=== PATIENT | female | born 1945 | race Caucasian/White ===

== ENCOUNTER 2018-07-17 14:57 | Observation (INO) ==
[2018-07-17] MEDS ORDERED: Morphine Inj 4 MG/ML Vial IV.PUSH ONE ×3 (15:13→17:51)
[2018-07-17 15:33] LABS: Baso # (Auto) 0.1 th/mm3 (0.0-0.2); Baso % (Auto) 0.9 % (0.0-2.0); Eos # (Auto) 0.7 th/mm3 (0.0-0.4); Eos % (Auto) 4.5 % (0.0-4.0); Hematocrit 44.3 % (35.0-46.0); Hemoglobin 14.3 gm/dL (11.6-15.3); Lymph # (Auto) 3.5 th/mm3 (1.0-4.8); Lymph % (Auto) 24.1 % (9.0-44.0); Mean Corpuscular HGB Conc 32.3 % (32.0-36.0); Mean Corpuscular Hemoglobin 28.9 pg (27.0-34.0); Mean Corpuscular Volume 89.6 fL (80.0-100.0); Mean Platelet Volume 8.9 fL (7.0-11.0); Mono # (Auto) 0.7 th/mm3 (0.0-0.9); Mono % (Auto) 4.9 % (0.0-8.0); Neut # (Auto) 9.6 th/mm3 (1.8-7.7); Neut % (Auto) 65.6 % (16.0-70.0); Platelet Count 349 th/mm3 (150-450); Red Blood Count 4.94 mil/mm3 (4.00-5.30); Red Cell Distribution Width 13.5 % (11.6-17.2); White Blood Count 14.6 th/mm3 (4.0-11.0)
[2018-07-17 15:47] LABS: Anion Gap 8 meq/L (5-15); Aspartate Aminotransferase 23 U/L (15-37); Blood Urea Nitrogen 17 mg/dL (7-18); Calcium 9.6 mg/dL (8.5-10.1); Carbon Dioxide 25.8 meq/L (21.0-32.0); Chloride 108 meq/L (98-107); Glomerular Filtration Rate 50 mL/min (>89); Glucose,Random 107 mg/dL (74-106); Lipase 40 U/L (73-393); Potassium 4.9 meq/L (3.5-5.1); Sodium 142 meq/L (136-145)
[2018-07-17 15:50] LABS: Alanine Aminotransferase 21 U/L (10-53); Alkaline Phosphatase 100 U/L (45-117); Total Protein 8.4 g/dL (6.4-8.2)
--- NOTE | 2018-07-17 15:59 | ED ---
HPI General Chief Complaint: Abdominal Pain Stated Complaint: Poss Kidney Stones Time Seen by Provider: 07/17/18 15:03 Source: patient and RN notes reviewed Mode of arrival: other (med one) Limitations: altered mental status History of Present Illness HPI narrative: 73 yo female here for evaluation of abdominal pain. Comes here via [facility]. Patient has been having abdominal pain since today. Patient takes tramadol chronically for pain but this does not seem to be working. She states that the pain is bilaterally on the abdomen. She denies any bowel movement or urinary issues. History is somewhat difficult to obtain from the patient has she is not really a great historian she does appear to be somewhat altered. She only answers by yes or no questions and points to areas of pain. Unclear as to what is her baseline. She does appear to be somewhat altered on exam. She lives in an [facility]. Denies any trauma. She does have a history of chronic kidney stones and had a CAT scan done at the beginning of June that showed inflammation of the rectum as well as kidney stones. She cannot really tell me this is the same. Pain appears to be severe as patient moans and groans every time I evaluate her. Related Data Home Medications Medication Instructions Recorded Confirmed alendronate 70 mg PO QWEEK 07/17/18 07/17/18 amlodipine 10 mg PO DAILY 07/17/18 07/17/18 atorvastatin 20 mg PO DAILY 07/17/18 07/17/18 insulin aspart U-100 [Novolog 1 sliding scale dose SUBCUT UD 07/17/18 07/17/18 PenFill U-100 Insulin] insulin detemir U-100 [Levemir 10 unit SUBCUT QPM 07/17/18 07/17/18 U-100 Insulin] lisinopril 5 mg PO DAILY 07/17/18 07/17/18 metformin 500 mg PO BID 07/17/18 07/17/18 tramadol 50 mg PO QID 07/17/18 07/17/18 Allergies Allergy/AdvReac Type Severity Reaction Status Date / Time aspirin AdvReac Severe "UPSET Verified 07/17/18 19:16 STOMACH" Review of Systems ROS: all other systems reviewed are negative [facility] Medical History Medical History Anxiety (Acute) Aphasia (Acute) CVA (cerebral vascular accident) (Acute) Diabetes (Acute) Emphysema of lung (Acute) GERD (gastroesophageal reflux disease) (Acute) Hyperlipemia (Acute) Hypertension (Acute) Pseudobulbar affect (Acute) Social History Social History Substance History: No History of Abuse Smoking Status: Former smoker How Often Do You Have a Drink Containing Alcohol: 4 or more times a week Recent Travel in [facility] [place] within the Last 8 Weeks: No Recent Out of Country Travel within the Last 8 Weeks: No Immunization History Tetanus Immunization: Unsure Exam Narrative Exam Narrative: GENERAL: Well groomed SKIN: Focused skin assessment warm/dry. HEAD: Atraumatic. Normocephalic. EYES: Pupils equal and round. No scleral icterus. No injection or drainage. ENT: No nasal bleeding or discharge. Mucous membranes pink and moist. Tongue is midline. No uvula deviation. NECK: Trachea midline. No JVD. CARDIOVASCULAR: Regular rate and rhythm. No murmur appreciated. RESPIRATORY: No accessory muscle use. Clear to auscultation. Breath sounds equal bilaterally. GASTROINTESTINAL: Abdomen soft, tender to touch in the lower abdomen, nondistended. Hepatic and splenic margins not palpable. MUSCULOSKELETAL: No obvious deformities. No clubbing. No cyanosis. No edema. NEUROLOGICAL: Awake and alert. No obvious cranial nerve deficits. Motor grossly within normal limits. Normal speech. PSYCHIATRIC: Appropriate mood and affect; insight and judgment normal. Course Initial Documented Vital Signs Temperature 98.0 F 07/17/18 15:07 Pulse Rate 68 07/17/18 15:07 Respiratory Rate 12 07/17/18 15:07 Blood Pressure 144/92 H 07/17/18 15:07 Pulse Oximetry 95 07/17/18 15:07 Last Documented Vital Signs Temperature 98.0 F 07/17/18 15:07 Pulse Rate 58 L 07/17/18 16:28 Respiratory Rate 24 07/17/18 16:28 Blood Pressure 145/65 H 07/17/18 16:28 Pulse Oximetry 97 07/17/18 16:28 Medical Decision Making MDM Narrative Medical decision making narrative: 73-year-old female that presents to the ED for evaluation of possible kidney stone versus acute abdomen. Patient was properly examined and was found to have signs and symptoms of unclear etiology. She is very tender on exam. Labs and imaging ordered. Labs and imaging showed what appears to be UTI. Otherwise unremarkable exam. Some constipation on CT. I was told by the nurse when they move the patient the patient does appear to have a decubitus stage 2 ulcer on her lumbar area as well as what appears to be pinkish discoloration of the buttocks from possible staged 1 or early ulcer. Unclear as to how long they have been there as there is no documented evidence that has been seen before. Patient does appear to have some altered mental status. Sister is at bedside and she does state that she seems to be going in and out of alteration. Patient had to go to CAT scan twice because the first time she apparently started to refuse and become agitated. Patient at baseline does not talk because of CVA. She does appear to be in and out of possible delirium versus alteration. The recommend admission for further evaluation and IV antibiotics. Patient agrees. Dr. Pierce agrees to admission. Medical Screen Exam Complete: Yes Emergency Medical Condition: Yes Differential Diagnosis Differential Diagnosis: Acute abdomen versus kidney stone versus diverticulitis versus sepsis versus UTI Medical Records Medical records reviewed: Yes I reviewed the patient's medical records. Lab Data Lab results reviewed: Yes I reviewed the patient's lab results. Lab results narrative: UA shows UTI Result diagrams: 07/17/18 15:23 07/17/18 15:23 Lab Results 07/17/18 07/17/18 07/17/18 Range/Units 15:23 15:23 15:23 WBC 14.6 H (4.0-11.0) th/mm3 RBC 4.94 (4.00-5.30) mil/mm3 Hgb 14.3 (11.6-15.3) gm/dL Hct 44.3 (35.0-46.0) % MCV 89.6 (80.0-100.0) fL MCH 28.9 (27.0-34.0) pg MCHC 32.3 (32.0-36.0) % RDW 13.5 (11.6-17.2) % Plt Count 349 (150-450) th/mm3 MPV 8.9 (7.0-11.0) fL Neut % (Auto) 65.6 (16.0-70.0) % Lymph % (Auto) 24.1 (9.0-44.0) % [place] % (Auto) 4.9 (0.0-8.0) % Eos % (Auto) 4.5 H (0.0-4.0) % Baso % (Auto) 0.9 (0.0-2.0) % Neut # (Auto) 9.6 H (1.8-7.7) th/mm3 Lymph # (Auto) 3.5 (1.0-4.8) th/mm3 [place] # (Auto) 0.7 (0.0-0.9) th/mm3 Eos # (Auto) 0.7 H (0.0-0.4) th/mm3 Baso # (Auto) 0.1 (0.0-0.2) th/mm3 WBC Differential . Differential Comment Auto diff final Sodium 142 (136-145) meq/L Potassium 4.9 (3.5-5.1) meq/L Chloride 108 H (98-107) meq/L Carbon Dioxide 25.8 (21.0-32.0) meq/L Anion Gap 8 (5-15) meq/L BUN 17 (7-18) mg/dL Creatinine 1.08 H (0.50-1.00) mg/dL Estimated GFR 50 L (>89) mL/min Random Glucose 107 H (74-106) mg/dL Lactic Acid 1.1 (0.4-2.0) mmol/L Calcium 9.6 (8.5-10.1) mg/dL Total Bilirubin 0.5 (0.2-1.0) mg/dL AST 23 (15-37) U/L ALT 21 (10-53) U/L Alkaline Phosphatase 100 (45-117) U/L Total Protein 8.4 H (6.4-8.2) g/dL Albumin 4.0 (3.4-5.0) g/dL Lipase 40 L (73-393) U/L Urine Color (Yellw/Straw) Urine Clarity (Clear) Urine pH (5.0-8.5) Ur Specific [place] (1.002-1.035) Urine Protein (Neg-Trace) mg/dL Urine Glucose (UA) (Negative) mg/dL Urine Ketones (Negative) mg/dL Urine Occult Blood (Negative) Urine Nitrate (Negative) Urine Bilirubin (Negative) Urine Urobilinogen (Less than 2) mg/dL Ur Leukocyte Esterase (Negative) Urine RBC (0-3) /hpf Urine WBC (0-5) /hpf Urine WBC Clumps (None) Urine Bacteria (None) /hpf Hyaline Casts (0-3) /lpf Urine Mucus (Occasional) /lpf Micro UA Comment Ur Microscopic Review Urine Culture Comments 07/17/18 Range/Units 15:26 WBC (4.0-11.0) th/mm3 RBC (4.00-5.30) mil/mm3 Hgb (11.6-15.3) gm/dL Hct (35.0-46.0) % MCV (80.0-100.0) fL MCH (27.0-34.0) pg MCHC (32.0-36.0) % RDW (11.6-17.2) % Plt Count (150-450) th/mm3 MPV (7.0-11.0) fL Neut % (Auto) (16.0-70.0) % Lymph % (Auto) (9.0-44.0) % [place] % (Auto) (0.0-8.0) % Eos % (Auto) (0.0-4.0) % Baso % (Auto) (0.0-2.0) % Neut # (Auto) (1.8-7.7) th/mm3 Lymph # (Auto) (1.0-4.8) th/mm3 [place] # (Auto) (0.0-0.9) th/mm3 Eos # (Auto) (0.0-0.4) th/mm3 Baso # (Auto) (0.0-0.2) th/mm3 WBC Differential Differential Comment Sodium (136-145) meq/L Potassium (3.5-5.1) meq/L Chloride (98-107) meq/L Carbon Dioxide (21.0-32.0) meq/L Anion Gap (5-15) meq/L BUN (7-18) mg/dL Creatinine (0.50-1.00) mg/dL Estimated GFR (>89) mL/min Random Glucose (74-106) mg/dL Lactic Acid (0.4-2.0) mmol/L Calcium (8.5-10.1) mg/dL Total Bilirubin (0.2-1.0) mg/dL AST (15-37) U/L ALT (10-53) U/L Alkaline Phosphatase (45-117) U/L Total Protein (6.4-8.2) g/dL Albumin (3.4-5.0) g/dL Lipase (73-393) U/L Urine Color Yellow (Yellw/Straw) Urine Clarity Hazy H (Clear) Urine pH 5.0 (5.0-8.5) Ur Specific [place] 1.023 (1.002-1.035) Urine Protein Negative (Neg-Trace) mg/dL Urine Glucose (UA) Negative (Negative) mg/dL Urine Ketones Negative (Negative) mg/dL Urine Occult Blood Moderate H (Negative) Urine Nitrate Negative (Negative) Urine Bilirubin Negative (Negative) Urine Urobilinogen Less than 2 (Less than 2) mg/dL Ur Leukocyte Esterase Moderate H (Negative) Urine RBC 18 H (0-3) /hpf Urine WBC 38 H (0-5) /hpf Urine WBC Clumps Few H (None) Urine Bacteria Moderate H (None) /hpf Hyaline Casts 1 (0-3) /lpf Urine Mucus Few H (Occasional) /lpf Micro UA Comment Cath-culture ind Ur Microscopic Review Not Reportable Urine Culture Comments Cath-cult indicated Imaging Data Attestation: I personally reviewed and interpreted this imaging study as follows : Radiologist's impression: Abdomen/Pelvis CT 07/17/18 15:13 CONCLUSION: 1. There is a 5 mm nonobstructing stone in the right renal pelvis. 2. Status post cholecystectomy. 3. Moderate to large bolus of stool in the rectum. No mechanical obstruction. 4. No acute pelvic or abdominal pathology. Discharge Plan Discharge Disposition Patient Disposition: 30 Still Patient Discharge Details Diagnosis: Altered mental status, Acute UTI, Decubitus ulcer Physicians Team ED Provider: Moise Kirkland ED Midlevel Provider: Brien Murphy Primary Care Provider: UNKNOWN, Attending Provider: Maddison Pierce Rxs /Orders / Referrals /Forms Prescriptions: No Action metformin 500 mg Tablet 500 mg PO BID RF: 0 atorvastatin 20 mg Tablet 20 mg PO DAILY RF: 0 alendronate 70 mg Tablet 70 mg PO QWEEK RF: 0 tramadol 50 mg Tablet 50 mg PO QID RF: 0 amlodipine 10 mg Tablet 10 mg PO DAILY RF: 0 lisinopril 5 mg Tablet 5 mg PO DAILY RF: 0 insulin aspart U-100 [Novolog PenFill U-100 Insulin] 100 unit/mL Cartridge 1 sliding scale dose SUBCUT UD RF: 0 insulin detemir U-100 [Levemir U-100 Insulin] 100 unit/mL Solution 10 unit SUBCUT QPM RF: 0 Status ED Status: With Doctor
[2018-07-17 16:02] LABS: Bacteria,Urine Moderate /hpf; Bilirubin,Urine Negative (Negative); Clarity,Urine Hazy (Clear); Color,Urine Yellow (Yellw/Straw); Glucose,Urine (UA) Negative (Negative); Hyaline Casts,Urine 1 /lpf (0-3); Leukocyte Esterase,Urine Moderate (Negative); Mucus,Urine Few /lpf (Occasional); Nitrite,Urine Negative (Negative); Specific Gravity,Urine 1.023 (1.002-1.035)
--- NOTE | 2018-07-17 19:08 | CT ---
EXAM DATE: 07/17/2018 6:49 PM EDT AGE/SEX: 73 years / Female INDICATIONS: Abdominal pain. CLINICAL DATA: This is the patient's initial encounter. Patient reports that signs and symptoms have been present for 1 day and indicates a pain score of Nonresponsive. MEDICAL/SURGICAL HISTORY: Hypertension. Chronic obstructive pulmonary disease. Cerebrovascula r disease. Aphasia None. ORAL CONTRAST: No oral contrast ingested. RADIATION DOSE: 13.68 CTDI (mGy) COMPARISON: No prior exams available for comparison. TECHNIQUE: Multiple contiguous axial images were obtained through the abdomen and pelvis following b olus infusion of 97 ml Omnipaque 350 (iohexol) nonionic water-soluble contrast as a single exam dos e. No oral contrast ingested. Using automated exposure control and adjustment of the mA and/or kV ac cording to patient size, radiation dose was kept as low as reasonably achievable to obtain optimal di agnostic quality images. DICOM format image data is available electronically for review and comparis on. FINDINGS: Lower Lungs: The visualized lower lungs are clear. Liver: The liver has a homogeneous density without space-occupying lesion. There is no dilation of th e biliary tree. Gallbladder removed. Spleen: Homogeneous density without enlargement. Pancreas: Unremarkable without mass or calcification. Kidneys: There is a 5 mm stone in the right renal pelvis. No significant hydronephrosis is demonstra philip. Both kidneys are functioning. The left kidney is unremarkable. The ureters are nondilated. Adrenal Glands: Unremarkable. Aorta: Atherosclerotic changes. No aneurysmal dilatation. Bowel/Mesentery: The bowel loops are grossly unremarkable. The cecum and sigmoid colon have a normal configuration. No inflammatory changes are seen. There is stool throughout the colon. There is a mod erate to large bolus of stool in the rectum. No free fluid is seen. No free air is demonstrated. Abdominal Wall: Intact. Retroperitoneum: No evidence of adenopathy in the retrocrural, para-aortic, or deep pelvic regions. Bladder: Contours are smooth. Reproductive Organs: No abnormal masses or calcifications seen. Inguinal: The inguinal region is unremarkable without evidence of adenopathy. Bony Structures: Primary bony degenerative changes. CONCLUSION: 1. There is a 5 mm nonobstructing stone in the right renal pelvis. 2. Status post cholecystectomy. 3. Moderate to large bolus of stool in the rectum. No mechanical obstruction. 4. No acute pelvic or abdominal pathology. Electronically signed by: Ruben Moreno MD 07/17/2018 7:07 PM EDT
[2018-07-17] MEDS ORDERED: Bisacodyl 10 MG Supp RECTAL PRN (19:41)
[2018-07-17] MEDS ORDERED: Acetaminophen 325 MG Tablet PO PRN (19:41)
[2018-07-17] MEDS ORDERED: Dextrose 50% in Water 50 ML Vial IV.PUSH PRN (19:41)
--- NOTE | 2018-07-17 19:44 | P.HPIM ---
History of Present Illness Primary Care Physician: UNKNOWN History of Present Illness: This is a 73-year-old female with a PMH of Anxiety, CVA w/ Residual Aphasia, HTN , Hyperlipidemia and DM who was brought to the ER by transport for AMS and c/o abdominal pain. Pt poor historian due to h/o CVA, mostly non-verbal at baseline , but able to point to area of pain on abdomen. No reported fever/chills, nausea, vomiting or diarrhea. On arrival, BP 144/92, HR 68, O2 sat 95% on RA, Afebrile. WBC 14.6. Creatinine 1.08. Lactic Acid normal. UA positive for UTI. CT Abdomen/Pelvis 5 mm nonobstructing stone right renal pelvis, large bolus of stool in the rectum no obstruction. S/p IVF, Rocephin and multiple doses of Morphine w/ minimal relief of pain complaints. - Diagnosis (1) Encephalopathy (2) UTI (urinary tract infection) (3) Intractable pain (4) Decubitus ulcer (5) DM (diabetes mellitus) Review of Systems PAST FAMILY HISTORY: Unknown unobtainable due to mental condition PMFSH - History History Provided By: Patient - Medical History Medical History: Medical History (Last Reviewed 07/17/18 @ 17:14 by JANETH Schafer) Anxiety Aphasia CVA (cerebral vascular accident) Diabetes Emphysema of lung GERD (gastroesophageal reflux disease) Hyperlipemia Hypertension Pseudobulbar affect - Tobacco History Tobacco Use In Past 30 Days: No Smoking Status: Former smoker - Alcohol History How Often Do You Have a Drink Containing Alcohol: 4 or more times a week - Substance Use History Substance History: No History of Abuse - Travel History Recent Travel in the [place] Within the Last 8 Weeks: No Recent Travel Out of the Country Within the Last 8 Weeks: No - Immunization History Tetanus Immunization: Unsure Medications and Allergies Active Medications: Active Medications Sodium Chloride (Ns Flush) 2 ml IV.FLUSH PRN PRN PRN Reason: FLUSH AFTER USING IV ACCESS Last Admin: 07/17/18 15:30 Dose: 2 ml Allergies Allergy/AdvReac Type Severity Reaction Status Date / Time aspirin AdvReac Severe "UPSET Verified 07/17/18 19:16 STOMACH" Home Medications Medication Instructions Recorded Confirmed Type alendronate 70 mg PO QWEEK 07/17/18 07/17/18 History amlodipine 10 mg PO DAILY 07/17/18 07/17/18 History atorvastatin 20 mg PO DAILY 07/17/18 07/17/18 History insulin aspart U-100 [Novolog 1 sliding scale dose SUBCUT UD 07/17/18 07/17/18 History PenFill U-100 Insulin] insulin detemir U-100 [Levemir 10 unit SUBCUT QPM 07/17/18 07/17/18 History U-100 Insulin] lisinopril 5 mg PO DAILY 07/17/18 07/17/18 History metformin 500 mg PO BID 07/17/18 07/17/18 History tramadol 50 mg PO QID 07/17/18 07/17/18 History Exam Vital signs: Vital Signs 07/17/18 15:07 07/17/18 16:28 Temperature 98.0 F Pulse Rate 68 58 L Respiratory Rate 12 24 Blood Pressure 144/92 H 145/65 H Pulse Oximetry 95 97 Intake & Output 07/17/18 07/17/18 07/18/18 06:59 18:59 06:59 Intake Total 100 / 100 Balance 100 / 100 Weight 86.183 kg Intake: IV 100 / 100 Rocephin Inj 1,000 MG In NS Inj 100 / 100 100 ML @ 200 mls/hr IV.SIG ONCE ONE Rx#:[id number] Narrative: PE: GENERAL: Elderly female in no acute distress. SKIN: Focused skin assessment warm and dry. HEENT: PERRLA, EOMI. No scleral icterus or conjunctival pallor. No lid lag or facial droop. CARDIOVASCULAR: Regular rate and rhythm. No obvious murmurs to auscultation. No chest tenderness to palpation. RESPIRATORY: No obvious rhonchi or wheezing. Clear to auscultation. Breath sounds equal bilaterally. GASTROINTESTINAL: Abdomen soft, mild generalized tenderness to palpation, nondistended. BS normal. MUSCULOSKELETAL: Extremities without clubbing, cyanosis, or edema. No obvious deformities. NEUROLOGICAL: Awake, alert. No focal neurologic deficits. Moving both upper and lower extremities spontaneously. PSYCHIATRIC: Appropriate mood and affect. Insight and judgment normal. Results - Labs CBC & Chem 7: 07/17/18 15:23 07/17/18 15:23 Labs: Short CBC 07/17/18 Range/Units 15:23 WBC 14.6 H (4.0-11.0) th/mm3 Hgb 14.3 (11.6-15.3) gm/dL Hct 44.3 (35.0-46.0) % Plt Count 349 (150-450) th/mm3 BMP 07/17/18 15:23 Sodium 142 Potassium 4.9 Chloride 108 H Carbon Dioxide 25.8 BUN 17 Creatinine 1.08 H Calcium 9.6 Liver Function 07/17/18 Range/Units 15:23 Total Bilirubin 0.5 (0.2-1.0) mg/dL AST 23 (15-37) U/L ALT 21 (10-53) U/L Alkaline Phosphatase 100 (45-117) U/L Albumin 4.0 (3.4-5.0) g/dL Urine 07/17/18 Range/Units 15:26 Urine Color Yellow (Yellw/Straw) Urine Clarity Hazy H (Clear) Urine pH 5.0 (5.0-8.5) Ur Specific [place] 1.023 (1.002-1.035) Urine Protein Negative (Neg-Trace) mg/dL Urine Glucose (UA) Negative (Negative) mg/dL - Imaging Impressions Abdomen/Pelvis CT 07/17/18 15:13 CONCLUSION: 1. There is a 5 mm nonobstructing stone in the right renal pelvis. 2. Status post cholecystectomy. 3. Moderate to large bolus of stool in the rectum. No mechanical obstruction. 4. No acute pelvic or abdominal pathology. Caprini VTE Risk Assessment Caprini VTE Risk Assessment: No/Low Risk (score <= 1) Caprini Risk Assessment Model: Point Value = 1 Point Value = 2 Point Value = 3 Point Value = 5 Age 41-60 Minor surgery BMI > 25 kg/m2 Swollen legs Varicose veins or History of unexplained or recurrent spontaneous Oral contraceptives or hormone replacement Sepsis (< 1 month) Serious lung disease, including pneumonia (< 1 month) Abnormal pulmonary function Acute myocardial infarction Congestive heart failure (< 1 month) History of inflammatory bowel disease Medical patient at bed rest Age 61-74 Arthroscopic surgery Major open surgery (> 45 min) Laparoscopic surgery (> 45 min) Malignancy Confined to bed (> 72 hours) Immobilizing plaster cast Central venous access Age >= 75 History of VTE Family history of VTE Factor V Leiden Prothrombin [id number] Lupus anticoagulant Anticardiolipin antibodies Elevated serum homocysteine Heparin-induced thrombocytopenia Other congenital or acquired thrombophilia Stroke (< 1 month) Elective arthroplasty Hip, pelvis, or leg fracture Acute spinal cord injury (< 1 month) Prophylaxis Regimen: Total Risk Factor Score Risk Level Prophylaxis Regimen 0-1 Low Early ambulation 2 Moderate Order ONE of the following: *Sequential Compression Device (SCD) *Heparin 5000 units SQ BID 3-4 Higher Order ONE of the following medications: *Heparin 5000 units SQ TID *Enoxaparin/Lovenox 40 mg SQ daily (WT < 150 kg, CrCl > 30 mL/min) *Enoxaparin/Lovenox 30 mg SQ daily (WT < 150 kg, CrCl > 10-29 mL/min) *Enoxaparin/Lovenox 30 mg SQ BID (WT < 150 kg, CrCl > 30 mL/min) AND/OR *Sequential Compression Device (SCD) 5 or more Highest Order ONE of the following medications: *Heparin 5000 units SQ TID (Preferred with Epidurals) *Enoxaparin/Lovenox 40 mg SQ daily (WT < 150 kg, CrCl > 30 mL/min) *Enoxaparin/Lovenox 30 mg SQ daily (WT < 150 kg, CrCl > 10-29 mL/min) *Enoxaparin/Lovenox 30 mg SQ BID (WT < 150 kg, CrCl > 30 mL/min) AND *Sequential Compression Device (SCD) Assessment and Plan - Assessment (1) Encephalopathy Code(s): G93.40 - Encephalopathy, unspecified Status: Acute (2) UTI (urinary tract infection) Code(s): N39.0 - Urinary tract infection, site not specified Status: Acute (3) Intractable pain Code(s): R52 - Pain, unspecified Status: Acute (4) Decubitus ulcer Code(s): L89.90 - Pressure ulcer of unspecified site, unspecified stage Status : Acute (5) DM (diabetes mellitus) Code(s): E11.9 - Type 2 diabetes mellitus without complications Status: Acute - Plan A/P: 1. Encephalopathy: Likely secondary to acute UTI, Neuro Checks. 2. UTI: U/a w/ UTI, s/p Rocephin in ER, will continue w/ IV Abx, follow up cultures, IVF for hydration, monitor I/O. 3. Intractable Pain: CT Abd/Pelvis w/ nonobstructing 5mm stone right renal pelvis, moderate to large stool in rectum w/ no mechanical obstruction, images reviewed. Lactic Acid normal. Continue analgesics/antiemetics as needed. Lactulose/Senna 4. Decubitus Ulcer: Sacral, present on admission. Will consult Wound Management for further eval/intervention. 5. DM: Sliding scale w/ Accu-Cheks. 6. DVT Prophylaxis: SCD/Teds 7. Social work for d/c planning as needed. 8. Case discussed w/ ER physician at length, labs/records/imaging reviewed by me.
[2018-07-17] MEDS: Sod Chloride 0.9% Inj 1,000 ML IV.CONT SCH (21:58)
[2018-07-17] MEDS: Senna/Docusate Sodium 8.6/50 MG Tablet PO SCH (21:58)
[2018-07-17] MEDS: Insulin NovoLOG Aspart Correctional Sugar Inj SQ SCH (21:58)
[2018-07-18] MEDS: Morphine Sulfate Inj 2 MG/ML Vial IV.PUSH PRN ×3 (03:31→21:34)
[2018-07-18 06:02] LABS: Baso % (Auto) 0.2 % (0.0-2.0); Eos # (Auto) 0.7 th/mm3 (0.0-0.4); Eos % (Auto) 5.2 % (0.0-4.0); Hemoglobin 15.5 gm/dL (11.6-15.3); Lymph # (Auto) 1.2 th/mm3 (1.0-4.8); Lymph % (Auto) 8.3 % (9.0-44.0); Mean Corpuscular Hemoglobin 29.5 pg (27.0-34.0); Mean Corpuscular Volume 89.6 fL (80.0-100.0); Mean Platelet Volume 9.4 fL (7.0-11.0); Mono # (Auto) 0.6 th/mm3 (0.0-0.9); Mono % (Auto) 3.9 % (0.0-8.0); Neut # (Auto) 11.9 th/mm3 (1.8-7.7); Neut % (Auto) 82.4 % (16.0-70.0); Platelet Count 300 th/mm3 (150-450); Red Blood Count 5.25 mil/mm3 (4.00-5.30); Red Cell Distribution Width 13.6 % (11.6-17.2); White Blood Count 14.4 th/mm3 (4.0-11.0)
[2018-07-18 06:28] LABS: Alanine Aminotransferase 135 U/L (10-53); Albumin 3.7 g/dL (3.4-5.0); Alkaline Phosphatase 263 U/L (45-117); Anion Gap 10 meq/L (5-15); Aspartate Aminotransferase 213 U/L (15-37); Blood Urea Nitrogen 22 mg/dL (7-18); Calcium 8.6 mg/dL (8.5-10.1); Chloride 108 meq/L (98-107); Glomerular Filtration Rate 40 mL/min (>89); Glucose,Random 129 mg/dL (74-106); Potassium 4.7 meq/L (3.5-5.1); Sodium 142 meq/L (136-145); Total Protein 7.7 g/dL (6.4-8.2)
[2018-07-18] MEDS: Sod Chloride 0.9% Inj 1,000 ML IV.CONT SCH ×2 (08:14→18:31)
[2018-07-18] MEDS: Senna/Docusate Sodium 8.6/50 MG Tablet PO SCH ×2 (08:17→20:17)
[2018-07-18] MEDS: Insulin NovoLOG Aspart Correctional Sugar Inj SQ SCH ×4 (09:13→21:52)
--- NOTE | 2018-07-18 09:19 | P.PNIM ---
Subjective Interval history: f/u; abdominal pain in no acute distress. hard to get more information from the patient due to history of CVA/ aphasia. However she seems to have abdominal pain/tenderness in RUQ. no fever. seen with PT at the bedside. Physical Exam Vital signs: Vital Signs 07/17/18 15:07 07/17/18 16:28 07/17/18 19:41 Temperature 98.0 F Pulse Rate 68 58 L 62 Respiratory Rate 12 24 18 Blood Pressure 144/92 H 145/65 H 173/73 H Pulse Oximetry 95 97 96 07/17/18 20:31 07/17/18 22:01 07/18/18 00:00 Temperature 97.6 F 98.2 F Pulse Rate 66 72 Respiratory Rate 18 17 18 Blood Pressure 147/65 H 112/58 L Pulse Oximetry 91 L 93 L 07/18/18 04:00 Temperature 99.2 F Pulse Rate 84 Respiratory Rate 18 Blood Pressure 123/60 Pulse Oximetry 94 L Intake & Output 07/17/18 07/18/18 07/18/18 18:59 06:59 18:59 Intake Total 100 / 100 1000 / 1000 Balance 100 / 100 1000 / 1000 Weight 86.183 kg Intake: IV 100 / 100 1000 / 1000 NS Inj 1,000 ML @ 100 mls/hr IV 1000 / 1000 .CONT .Q10H FRANCIS Rx#:[id number] Rocephin Inj 1,000 MG In NS Inj 100 / 100 100 ML @ 200 mls/hr IV.SIG ONCE ONE Rx#:[id number] Other: # Urine Diapers 3 - Constitutional no acute distress - Routine Respiratory Exam Present: CTA bilaterally - Routine Cardiovascular Exam Present: RRR - Routine Abdominal Exam Present: soft, tenderness (RUQ tenderness.) - Routine Extremities Exam Comments: no pedal edema. - Routine Neurological Exam Present: alert (with aphasia.) Results - Labs CBC & Chem 7: 07/18/18 05:07 07/18/18 05:07 Laboratory Results - last 24 hr 07/17/18 07/17/18 07/17/18 15:23 15:23 15:23 WBC 14.6 H RBC 4.94 Hgb 14.3 Hct 44.3 MCV 89.6 MCH 28.9 MCHC 32.3 RDW 13.5 Plt Count 349 MPV 8.9 Neut % (Auto) 65.6 Lymph % (Auto) 24.1 [place] % (Auto) 4.9 Eos % (Auto) 4.5 H Baso % (Auto) 0.9 Neut # (Auto) 9.6 H Lymph # (Auto) 3.5 [place] # (Auto) 0.7 Eos # (Auto) 0.7 H Baso # (Auto) 0.1 WBC Differential . Differential Comment Auto diff final Sodium 142 Potassium 4.9 Chloride 108 H Carbon Dioxide 25.8 Anion Gap 8 BUN 17 Creatinine 1.08 H Estimated GFR 50 L POC Glucose Random Glucose 107 H Lactic Acid 1.1 Calcium 9.6 Total Bilirubin 0.5 AST 23 ALT 21 Alkaline Phosphatase 100 Total Protein 8.4 H Albumin 4.0 Lipase 40 L Urine Color Urine Clarity Urine pH Ur Specific [place] Urine Protein Urine Glucose (UA) Urine Ketones Urine Occult Blood Urine Nitrate Urine Bilirubin Urine Urobilinogen Ur Leukocyte Esterase Urine RBC Urine WBC Urine WBC Clumps Urine Bacteria Hyaline Casts Urine Mucus Micro UA Comment Ur Microscopic Review Urine Culture Comments 07/17/18 07/17/18 07/18/18 15:26 21:27 05:07 WBC 14.4 H RBC 5.25 Hgb 15.5 H Hct 47.0 H MCV 89.6 MCH 29.5 MCHC 33.0 RDW 13.6 Plt Count 300 MPV 9.4 Neut % (Auto) 82.4 H Lymph % (Auto) 8.3 L [place] % (Auto) 3.9 Eos % (Auto) 5.2 H Baso % (Auto) 0.2 Neut # (Auto) 11.9 H Lymph # (Auto) 1.2 [place] # (Auto) 0.6 Eos # (Auto) 0.7 H Baso # (Auto) 0.0 WBC Differential . Differential Comment Auto diff final Sodium Potassium Chloride Carbon Dioxide Anion Gap BUN Creatinine Estimated GFR POC Glucose 109 Random Glucose Lactic Acid Calcium Total Bilirubin AST ALT Alkaline Phosphatase Total Protein Albumin Lipase Urine Color Yellow Urine Clarity Hazy H Urine pH 5.0 Ur Specific [place] 1.023 Urine Protein Negative Urine Glucose (UA) Negative Urine Ketones Negative Urine Occult Blood Moderate H Urine Nitrate Negative Urine Bilirubin Negative Urine Urobilinogen Less than 2 Ur Leukocyte Esterase Moderate H Urine RBC 18 H Urine WBC 38 H Urine WBC Clumps Few H Urine Bacteria Moderate H Hyaline Casts 1 Urine Mucus Few H Micro UA Comment Cath-culture ind Ur Microscopic Review Not Reportable Urine Culture Comments Cath-cult indicated 07/18/18 07/18/18 05:07 08:15 WBC RBC Hgb Hct MCV MCH MCHC RDW Plt Count MPV Neut % (Auto) Lymph % (Auto) [place] % (Auto) Eos % (Auto) Baso % (Auto) Neut # (Auto) Lymph # (Auto) [place] # (Auto) Eos # (Auto) Baso # (Auto) WBC Differential Differential Comment Sodium 142 Potassium 4.7 Chloride 108 H Carbon Dioxide 24.0 Anion Gap 10 BUN 22 H Creatinine 1.30 H Estimated GFR 40 L POC Glucose 123 H Random Glucose 129 H Lactic Acid Calcium 8.6 D Total Bilirubin 0.5 AST 213 H ALT 135 H Alkaline Phosphatase 263 H Total Protein 7.7 D Albumin 3.7 Lipase Urine Color Urine Clarity Urine pH Ur Specific [place] Urine Protein Urine Glucose (UA) Urine Ketones Urine Occult Blood Urine Nitrate Urine Bilirubin Urine Urobilinogen Ur Leukocyte Esterase Urine RBC Urine WBC Urine WBC Clumps Urine Bacteria Hyaline Casts Urine Mucus Micro UA Comment Ur Microscopic Review Urine Culture Comments - Imaging Impressions Abdomen/Pelvis CT 07/17/18 15:13 CONCLUSION: 1. There is a 5 mm nonobstructing stone in the right renal pelvis. 2. Status post cholecystectomy. 3. Moderate to large bolus of stool in the rectum. No mechanical obstruction. 4. No acute pelvic or abdominal pathology. Assessment and Plan - Assessment (1) Encephalopathy Code(s): G93.40 - Encephalopathy, unspecified Status: Acute (2) UTI (urinary tract infection) Code(s): N39.0 - Urinary tract infection, site not specified Status: Acute (3) Intractable pain Code(s): R52 - Pain, unspecified Status: Acute (4) Decubitus ulcer Code(s): L89.90 - Pressure ulcer of unspecified site, unspecified stage Status : Acute (5) DM (diabetes mellitus) Code(s): E11.9 - Type 2 diabetes mellitus without complications Status: Acute - Plan 1. Encephalopathy: Likely secondary to acute UTI, Neuro Checks. 2. UTI: U/a w/ UTI, s/p Rocephin in ER, will continue w/ IV Abx, follow up cultures, IVF for hydration, monitor I/O. 3. Intractable Pain/ with elevated LFT's: CT Abd/Pelvis w/ nonobstructing 5mm stone right renal pelvis, moderate to large stool in rectum w/ no mechanical obstruction. will obtain liver US and check hepatitis panel- will consult GI. repeat LFT's in am. 4. acute kidney injury; continue with IV fluid- avoid nephrotoxins- will monitor the renal function. 5. Decubitus Ulcer: Sacral, present on admission. consulted Wound Management for further eval/intervention. 6. DM: Sliding scale w/ Accu-Cheks. 7. DVT Prophylaxis: SCD/Teds
--- NOTE | 2018-07-18 10:37 | US ---
EXAM DATE: 07/18/2018 12:00 AM EDT AGE/SEX: 73 years / Female INDICATIONS: Abdominal pain. CLINICAL DATA: This is the patient's initial encounter. Patient reports that signs and symptoms have been present for 1 day and indicates a pain score of 6/10. MEDICAL/SURGICAL HISTORY: Gastroesophageal reflux disease. Hypertension. Anxiety. Aphasia. CVA . Diabetes. Emphysema. Hyperlipidemia. None. COMPARISON: [facility] [place]OM[place] & PELVIS W CONTRAST, 07/17/2018. . MEASUREMENTS: Liver:__ 18.4 cm. Common Bile Duct:__ Nonvisualized. Right Kidney:__ 6.8 x 4.3 x 4.1 cm. FINDINGS: Liver: Increased echotexture without focal lesion or ductal dilation. Portal Vein: Hepatopedal flow seen in portal vein. Common Duct: Not visualized Gallbladder: Surgically absent. Pancreas: Not well visualized. Right Kidney: Borderline increased echotexture. No mass or hydronephrosis. Other: None. CONCLUSION: 1. Liver is echogenic which can be seen with hepatocellular dysfunction. 2. Status post cholecystectomy. 3. Right kidney is borderline echogenic which can be seen with medical renal disease. Electronically signed by: Alexis Brooks MD 07/18/2018 10:35 AM EDT
--- NOTE | 2018-07-18 12:10 | P.CONGI ---
History of Present Illness Consult date: 07/18/18 Consult reason: Elevated LFTs Chief complaint: AMS/UTI/Intractable Pain History of Present Illness: This is a 73-year-old female who was brought in to the hospital from the [facility] on 07/17/2018 with complaints of abdominal pain. Patient 's sister is at her bedside and is her main historian due to patient's history of CVA and aphasia. Patient is crying out and pointing to her left lower abdomen and lower abdominal area. Currently there appears to be no nausea no vomiting no dyspepsia or dysphasia no obvious hematemesis. Timing and event are unknown to patient's lower abdominal pain. CT scan performed on admission showed moderate to large bolus of stool in the rectal area, and no biliary tree dilatation. A previous CT was faxed over from [facility] performed on 06/10/2018. Findings included circumferential wall thickening of the rectum, and anus is not seen without evidence of significant fatty rectal inflammatory changes, tumor or inflammation is a strong consideration. Liver ultrasound was also performed on 07/18/2018 which showed echogenic changes which could be related to hepatocellular dysfunction. Status post cholecystectomy. Current labs show hemoglobin 15.5, WBC count 14.4. On admission patient had normal LFTs but on 07/18/2018 patient had 0.5 bilirubin, AST 213, ALT 135, and now elevated alkaline phosphatase at 263, lipase 40. New medications include Zofran, morphine, and antibiotics ceftriaxone. According to sister brother had some type of colon surgery in his 80s but no family history of colon cancer. Unknown timing or events of EGD or colonoscopy in the past but sister states no GI procedures that she knows of in the past 5 years since patient has been in the [facility]. Gastroenterology was consulted to assist with elevated LFTs, symptom management and plan of care. <Steph Corral - Last Filed: 07/18/18 12:47> Review of Systems All other systems reviewed negative except as stated in HPI, unobtainable due to mental status <Steph Corral - Last Filed: 07/18/18 12:47> PMFSH - History History Provided By: Patient - Medical History Medical History: Medical History (Last Reviewed 07/18/18 @ 07:42 by Henrique Pat) Anxiety Aphasia CVA (cerebral vascular accident) Diabetes Emphysema of lung GERD (gastroesophageal reflux disease) Hyperlipemia Hypertension Pseudobulbar affect - Tobacco History Tobacco Use In Past 30 Days: No Smoking Status: Former smoker - Alcohol History How Often Do You Have a Drink Containing Alcohol: 4 or more times a week - Substance Use History Substance History: No History of Abuse - Travel History Recent Travel in the [place] Within the Last 8 Weeks: No Recent Travel Out of the Country Within the Last 8 Weeks: No - Immunization History Tetanus Immunization: Unsure <Steph Corral - Last Filed: 07/18/18 12:47> - Medical History Medical History: Medical History (Last Reviewed 07/18/18 @ 07:42 by Henrique Pat) Anxiety Aphasia CVA (cerebral vascular accident) Diabetes Emphysema of lung GERD (gastroesophageal reflux disease) Hyperlipemia Hypertension Pseudobulbar affect <Víctor Beaver - Last Filed: 07/18/18 15:31> Medications and Allergies Active Medications: Active Medications Acetaminophen (Tylenol) 650 mg PO Q4H PRN PRN Reason: Temp > 100.4 Al Hydroxide/Mg Hydroxide (Milk Of Magnesia Liq) 30 ml PO Q12H PRN PRN Reason: Mild Constipation Bisacodyl (Dulcolax Supp) 10 mg RECTAL DAILY PRN PRN Reason: SEVERE CONSITIPATION Dextrose (D50w Vial) 50 ml IV.PUSH UNSCH PRN PRN Reason: PER HYPOGLYCEMIA PROTOCOL Glucagon (Glucagon Inj) 1 mg OTHER PRN PRN PRN Reason: for Hypoglycemia Protocol Hydrocortisone Acetate (Anusol-Hc) 1 applicatio RECTAL TID [facility] Ceftriaxone Sodium 1,000 mg/ (Sodium Chloride) 100 mls @ 200 mls/hr IV.SIG Q24H [facility] Sodium Chloride (Ns Inj) 1,000 mls @ 100 mls/hr IV.CONT .Q10H [facility] Last Admin: 07/18/18 08:14 Dose: 100 mls/hr Insulin Aspart (Novolog Insulin Correctional Sugar Inj) 0 unit SQ ACHS FRANCIS; Protocol Last Admin: 07/18/18 09:13 Dose: Not Given Lactulose (Lactulose Liq) 30 ml PO DAILY PRN PRN Reason: SEVERE CONSITIPATION Morphine Sulfate (Morphine Inj) 2 mg IV.PUSH Q4H PRN PRN Reason: PAIN 6-10 Last Admin: 07/18/18 08:26 Dose: 2 mg Ondansetron HCl (Zofran Inj) 4 mg IV.PUSH Q6H PRN PRN Reason: NAUSEA OR VOMITING Senna/Docusate Sodium (Alexandra-Colace) 1 tab PO BID [facility] Last Admin: 07/18/18 08:17 Dose: 1 tab Sennosides (Senokot) 17.2 mg PO Q12H PRN PRN Reason: Moderate Constipation Sodium Chloride (Ns Flush) 2 ml IV.FLUSH PRN PRN PRN Reason: FLUSH AFTER USING IV ACCESS Last Admin: 07/17/18 15:30 Dose: 2 ml Zinc Acetate/Diphenhydramine (Benadryl 2% Cream) 1 applicatio TOPICAL Q8H PRN PRN Reason: rash <Steph Corral - Last Filed: 07/18/18 12:47> Active Medications: Active Medications Acetaminophen (Tylenol) 650 mg PO Q4H PRN PRN Reason: Temp > 100.4 Al Hydroxide/Mg Hydroxide (Milk Of Magnesia Liq) 30 ml PO Q12H PRN PRN Reason: Mild Constipation Bisacodyl (Dulcolax Supp) 10 mg RECTAL DAILY PRN PRN Reason: SEVERE CONSITIPATION Dextrose (D50w Vial) 50 ml IV.PUSH UNSCH PRN PRN Reason: PER HYPOGLYCEMIA PROTOCOL Glucagon (Glucagon Inj) 1 mg OTHER PRN PRN PRN Reason: for Hypoglycemia Protocol Hydrocortisone Acetate (Anusol-Hc) 1 applicatio RECTAL TID [facility] Ceftriaxone Sodium 1,000 mg/ (Sodium Chloride) 100 mls @ 200 mls/hr IV.SIG Q24H [facility] Sodium Chloride (Ns Inj) 1,000 mls @ 100 mls/hr IV.CONT .Q10H [facility] Last Admin: 07/18/18 08:14 Dose: 100 mls/hr Insulin Aspart (Novolog Insulin Correctional Sugar Inj) 0 unit SQ ACHS [facility]; Protocol Last Admin: 07/18/18 15:20 Dose: Not Given Lactulose (Lactulose Liq) 30 ml PO DAILY PRN PRN Reason: SEVERE CONSITIPATION Morphine Sulfate (Morphine Inj) 2 mg IV.PUSH Q4H PRN PRN Reason: PAIN 6-10 Last Admin: 07/18/18 08:26 Dose: 2 mg Ondansetron HCl (Zofran Inj) 4 mg IV.PUSH Q6H PRN PRN Reason: NAUSEA OR VOMITING Senna/Docusate Sodium (Alexandra-Colace) 1 tab PO BID [facility] Last Admin: 07/18/18 08:17 Dose: 1 tab Sennosides (Senokot) 17.2 mg PO Q12H PRN PRN Reason: Moderate Constipation Sodium Chloride (Ns Flush) 2 ml IV.FLUSH PRN PRN PRN Reason: FLUSH AFTER USING IV ACCESS Last Admin: 07/17/18 15:30 Dose: 2 ml Zinc Acetate/Diphenhydramine (Benadryl 2% Cream) 1 applicatio TOPICAL Q8H PRN PRN Reason: rash <Víctor Beaver - Last Filed: 07/18/18 15:31> Allergies Allergy/AdvReac Type Severity Reaction Status Date / Time aspirin AdvReac Severe "UPSET Verified 07/17/18 19:16 STOMACH" Home Medications Medication Instructions Recorded Confirmed Type alendronate 70 mg PO QWEEK 07/17/18 07/17/18 History amlodipine 10 mg PO DAILY 07/17/18 07/17/18 History atorvastatin 20 mg PO DAILY 07/17/18 07/17/18 History insulin aspart U-100 [Novolog 1 sliding scale dose SUBCUT UD 07/17/18 07/17/18 History PenFill U-100 Insulin] insulin detemir U-100 [Levemir 10 unit SUBCUT QPM 07/17/18 07/17/18 History U-100 Insulin] lisinopril 5 mg PO DAILY 07/17/18 07/17/18 History metformin 500 mg PO BID 07/17/18 07/17/18 History tramadol 50 mg PO QID 07/17/18 07/17/18 History Exam Vital signs: Vital Signs 07/17/18 15:07 07/17/18 16:28 07/17/18 19:41 Temperature 98.0 F Pulse Rate 68 58 L 62 Respiratory Rate 12 24 18 Blood Pressure 144/92 H 145/65 H 173/73 H Pulse Oximetry 95 97 96 07/17/18 20:31 07/17/18 22:01 07/18/18 00:00 Temperature 97.6 F 98.2 F Pulse Rate 66 72 Respiratory Rate 18 17 18 Blood Pressure 147/65 H 112/58 L Pulse Oximetry 91 L 93 L 07/18/18 04:00 Temperature 99.2 F Pulse Rate 84 Respiratory Rate 18 Blood Pressure 123/60 Pulse Oximetry 94 L Intake & Output 07/17/18 07/18/18 07/18/18 18:59 06:59 18:59 Intake Total 100 / 100 1000 / 1000 Balance 100 / 100 1000 / 1000 Weight 86.183 kg Intake: IV 100 / 100 1000 / 1000 NS Inj 1,000 ML @ 100 mls/hr IV 1000 / 1000 .CONT .Q10H [facility] Rx#:[id number] Rocephin Inj 1,000 MG In NS Inj 100 / 100 100 ML @ 200 mls/hr IV.SIG ONCE ONE Rx#:[id number] Other: # Urine Diapers 3 - Constitutional moderate distress, chronically ill appearing, disheveled, agitated (Secondary to pain) - Routine HEENT Exam Head: Present: normocephalic ENT: Present: mucous membranes dry - Routine Respiratory Exam Present: accessory muscle use (No obvious shortness of breath but audible coarse rhonchi to loud cough) - Routine Cardiovascular Exam Present: S1, S2 - Routine Abdominal Exam Present: soft (Round, left lower quadrant and rectal discomfort, rectal exam performed, soft brown stool obtained, no obvious hard stool or obstruction) - Routine Neurological Exam Present: alert (Awake hollers out, aphasic to conversation) <Steph Corral - Last Filed: 07/18/18 12:47> Vital signs: Vital Signs 07/17/18 16:28 07/17/18 19:41 07/17/18 20:31 Temperature Pulse Rate 58 L 62 Respiratory Rate 24 18 18 Blood Pressure 145/65 H 173/73 H Pulse Oximetry 97 96 07/17/18 22:01 07/18/18 00:00 07/18/18 04:00 Temperature 97.6 F 98.2 F 99.2 F Pulse Rate 66 72 84 Respiratory Rate 17 18 18 Blood Pressure 147/65 H 112/58 L 123/60 Pulse Oximetry 91 L 93 L 94 L 07/18/18 12:20 Temperature 97.8 F Pulse Rate 78 Respiratory Rate 18 Blood Pressure 119/68 Pulse Oximetry 97 Intake & Output 07/17/18 07/18/18 07/18/18 18:59 06:59 18:59 Intake Total 100 / 100 1000 / 1000 Balance 100 / 100 1000 / 1000 Weight 86.183 kg 82.055 kg Intake: IV 100 / 100 1000 / 1000 NS Inj 1,000 ML @ 100 mls/hr IV 1000 / 1000 .CONT .Q10H [facility] Rx#:[id number] Rocephin Inj 1,000 MG In NS Inj 100 / 100 100 ML @ 200 mls/hr IV.SIG ONCE ONE Rx#:[id number] Other: # Urine Diapers 3 <Víctor Beaver - Last Filed: 07/18/18 15:31> Results - Labs CBC & Chem 7: 07/18/18 05:07 07/18/18 05:07 Labs: Laboratory Results - last 24 hr 07/17/18 07/17/18 07/17/18 15:23 15:23 15:23 WBC 14.6 H RBC 4.94 Hgb 14.3 Hct 44.3 MCV 89.6 MCH 28.9 MCHC 32.3 RDW 13.5 Plt Count 349 MPV 8.9 Neut % (Auto) 65.6 Lymph % (Auto) 24.1 Butts % (Auto) 4.9 Eos % (Auto) 4.5 H Baso % (Auto) 0.9 Neut # (Auto) 9.6 H Lymph # (Auto) 3.5 Butts # (Auto) 0.7 Eos # (Auto) 0.7 H Baso # (Auto) 0.1 WBC Differential . Differential Comment Auto diff final Sodium 142 Potassium 4.9 Chloride 108 H Carbon Dioxide 25.8 Anion Gap 8 BUN 17 Creatinine 1.08 H Estimated GFR 50 L POC Glucose Random Glucose 107 H Lactic Acid 1.1 Calcium 9.6 Total Bilirubin 0.5 AST 23 ALT 21 Alkaline Phosphatase 100 Total Protein 8.4 H Albumin 4.0 Lipase 40 L Urine Color Urine Clarity Urine pH Ur Specific [place] Urine Protein Urine Glucose (UA) Urine Ketones Urine Occult Blood Urine Nitrate Urine Bilirubin Urine Urobilinogen Ur Leukocyte Esterase Urine RBC Urine WBC Urine WBC Clumps Urine Bacteria Hyaline Casts Urine Mucus Micro UA Comment Ur Microscopic Review Urine Culture Comments 07/17/18 07/17/18 07/18/18 15:26 21:27 05:07 WBC 14.4 H RBC 5.25 Hgb 15.5 H Hct 47.0 H MCV 89.6 MCH 29.5 MCHC 33.0 RDW 13.6 Plt Count 300 MPV 9.4 Neut % (Auto) 82.4 H Lymph % (Auto) 8.3 L Butts % (Auto) 3.9 Eos % (Auto) 5.2 H Baso % (Auto) 0.2 Neut # (Auto) 11.9 H Lymph # (Auto) 1.2 Butts # (Auto) 0.6 Eos # (Auto) 0.7 H Baso # (Auto) 0.0 WBC Differential . Differential Comment Auto diff final Sodium Potassium Chloride Carbon Dioxide Anion Gap BUN Creatinine Estimated GFR POC Glucose 109 Random Glucose Lactic Acid Calcium Total Bilirubin AST ALT Alkaline Phosphatase Total Protein Albumin Lipase Urine Color Yellow Urine Clarity Hazy H Urine pH 5.0 Ur Specific [place] 1.023 Urine Protein Negative Urine Glucose (UA) Negative Urine Ketones Negative Urine Occult Blood Moderate H Urine Nitrate Negative Urine Bilirubin Negative Urine Urobilinogen Less than 2 Ur Leukocyte Esterase Moderate H Urine RBC 18 H Urine WBC 38 H Urine WBC Clumps Few H Urine Bacteria Moderate H Hyaline Casts 1 Urine Mucus Few H Micro UA Comment Cath-culture ind Ur Microscopic Review Not Reportable Urine Culture Comments Cath-cult indicated 07/18/18 07/18/18 05:07 08:15 WBC RBC Hgb Hct MCV MCH MCHC RDW Plt Count MPV Neut % (Auto) Lymph % (Auto) Butts % (Auto) Eos % (Auto) Baso % (Auto) Neut # (Auto) Lymph # (Auto) Butts # (Auto) Eos # (Auto) Baso # (Auto) WBC Differential Differential Comment Sodium 142 Potassium 4.7 Chloride 108 H Carbon Dioxide 24.0 Anion Gap 10 BUN 22 H Creatinine 1.30 H Estimated GFR 40 L POC Glucose 123 H Random Glucose 129 H Lactic Acid Calcium 8.6 D Total Bilirubin 0.5 AST 213 H ALT 135 H Alkaline Phosphatase 263 H Total Protein 7.7 D Albumin 3.7 Lipase Urine Color Urine Clarity Urine pH Ur Specific [place] Urine Protein Urine Glucose (UA) Urine Ketones Urine Occult Blood Urine Nitrate Urine Bilirubin Urine Urobilinogen Ur Leukocyte Esterase Urine RBC Urine WBC Urine WBC Clumps Urine Bacteria Hyaline Casts Urine Mucus Micro UA Comment Ur Microscopic Review Urine Culture Comments - Imaging Impressions Abdomen/Pelvis CT 07/17/18 15:13 CONCLUSION: 1. There is a 5 mm nonobstructing stone in the right renal pelvis. 2. Status post cholecystectomy. 3. Moderate to large bolus of stool in the rectum. No mechanical obstruction. 4. No acute pelvic or abdominal pathology. Liver Ultrasound 07/18/18 00:00 CONCLUSION: 1. Liver is echogenic which can be seen with hepatocellular dysfunction. 2. Status post cholecystectomy. 3. Right kidney is borderline echogenic which can be seen with medical renal disease. <Steph Corral - Last Filed: 07/18/18 12:47> - Labs CBC & Chem 7: 07/18/18 05:07 07/18/18 05:07 Labs: Laboratory Results - last 24 hr 07/17/18 07/17/18 07/17/18 15:23 15:23 15:23 WBC 14.6 H RBC 4.94 Hgb 14.3 Hct 44.3 MCV 89.6 MCH 28.9 MCHC 32.3 RDW 13.5 Plt Count 349 MPV 8.9 Neut % (Auto) 65.6 Lymph % (Auto) 24.1 Butts % (Auto) 4.9 Eos % (Auto) 4.5 H Baso % (Auto) 0.9 Neut # (Auto) 9.6 H Lymph # (Auto) 3.5 Butts # (Auto) 0.7 Eos # (Auto) 0.7 H Baso # (Auto) 0.1 WBC Differential . Differential Comment Auto diff final Sodium 142 Potassium 4.9 Chloride 108 H Carbon Dioxide 25.8 Anion Gap 8 BUN 17 Creatinine 1.08 H Estimated GFR 50 L POC Glucose Random Glucose 107 H Lactic Acid 1.1 Calcium 9.6 Total Bilirubin 0.5 Direct Bilirubin Indirect Bilirubin AST 23 ALT 21 Alkaline Phosphatase 100 Total Protein 8.4 H Albumin 4.0 Lipase 40 L Tumor Marker AFP Urine Color Urine Clarity Urine pH Ur Specific [place] Urine Protein Urine Glucose (UA) Urine Ketones Urine Occult Blood Urine Nitrate Urine Bilirubin Urine Urobilinogen Ur Leukocyte Esterase Urine RBC Urine WBC Urine WBC Clumps Urine Bacteria Hyaline Casts Urine Mucus Micro UA Comment Ur Microscopic Review Urine Culture Comments Hepatitis A IgM Ab Hep Bs Antigen Hep B Core IgM Ab Hep C IgG Ab 07/17/18 07/17/18 07/18/18 15:26 21:27 05:07 WBC 14.4 H RBC 5.25 Hgb 15.5 H Hct 47.0 H MCV 89.6 MCH 29.5 MCHC 33.0 RDW 13.6 Plt Count 300 MPV 9.4 Neut % (Auto) 82.4 H Lymph % (Auto) 8.3 L Butts % (Auto) 3.9 Eos % (Auto) 5.2 H Baso % (Auto) 0.2 Neut # (Auto) 11.9 H Lymph # (Auto) 1.2 Butts # (Auto) 0.6 Eos # (Auto) 0.7 H Baso # (Auto) 0.0 WBC Differential . Differential Comment Auto diff final Sodium Potassium Chloride Carbon Dioxide Anion Gap BUN Creatinine Estimated GFR POC Glucose 109 Random Glucose Lactic Acid Calcium Total Bilirubin Direct Bilirubin Indirect Bilirubin AST ALT Alkaline Phosphatase Total Protein Albumin Lipase Tumor Marker AFP Urine Color Yellow Urine Clarity Hazy H Urine pH 5.0 Ur Specific [place] 1.023 Urine Protein Negative Urine Glucose (UA) Negative Urine Ketones Negative Urine Occult Blood Moderate H Urine Nitrate Negative Urine Bilirubin Negative Urine Urobilinogen Less than 2 Ur Leukocyte Esterase Moderate H Urine RBC 18 H Urine WBC 38 H Urine WBC Clumps Few H Urine Bacteria Moderate H Hyaline Casts 1 Urine Mucus Few H Micro UA Comment Cath-culture ind Ur Microscopic Review Not Reportable Urine Culture Comments Cath-cult indicated Hepatitis A IgM Ab Hep Bs Antigen Hep B Core IgM Ab Hep C IgG Ab 07/18/18 07/18/18 07/18/18 05:07 08:15 12:40 WBC RBC Hgb Hct MCV MCH MCHC RDW Plt Count MPV Neut % (Auto) Lymph % (Auto) Butts % (Auto) Eos % (Auto) Baso % (Auto) Neut # (Auto) Lymph # (Auto) Butts # (Auto) Eos # (Auto) Baso # (Auto) WBC Differential Differential Comment Sodium 142 Potassium 4.7 Chloride 108 H Carbon Dioxide 24.0 Anion Gap 10 BUN 22 H Creatinine 1.30 H Estimated GFR 40 L POC Glucose 123 H Random Glucose 129 H Lactic Acid Calcium 8.6 D Total Bilirubin 0.5 Direct Bilirubin Indirect Bilirubin AST 213 H ALT 135 H Alkaline Phosphatase 263 H Total Protein 7.7 D Albumin 3.7 Lipase Tumor Marker AFP Urine Color Urine Clarity Urine pH Ur Specific [place] Urine Protein Urine Glucose (UA) Urine Ketones Urine Occult Blood Urine Nitrate Urine Bilirubin Urine Urobilinogen Ur Leukocyte Esterase Urine RBC Urine WBC Urine WBC Clumps Urine Bacteria Hyaline Casts Urine Mucus Micro UA Comment Ur Microscopic Review Urine Culture Comments Hepatitis A IgM Ab Nonreactive Hep Bs Antigen Nonreactive Hep B Core IgM Ab Nonreactive Hep C IgG Ab Nonreactive 07/18/18 07/18/18 12:56 14:04 WBC RBC Hgb Hct MCV MCH MCHC RDW Plt Count MPV Neut % (Auto) Lymph % (Auto) Butts % (Auto) Eos % (Auto) Baso % (Auto) Neut # (Auto) Lymph # (Auto) Butts # (Auto) Eos # (Auto) Baso # (Auto) WBC Differential Differential Comment Sodium Potassium Chloride Carbon Dioxide Anion Gap BUN Creatinine Estimated GFR POC Glucose 101 Random Glucose Lactic Acid Calcium Total Bilirubin 0.6 Direct Bilirubin 0.2 Indirect Bilirubin 0.4 AST 92 H ALT 95 H Alkaline Phosphatase 225 H Total Protein 6.9 D Albumin 3.5 Lipase Tumor Marker AFP 1.7 Urine Color Urine Clarity Urine pH Ur Specific [place] Urine Protein Urine Glucose (UA) Urine Ketones Urine Occult Blood Urine Nitrate Urine Bilirubin Urine Urobilinogen Ur Leukocyte Esterase Urine RBC Urine WBC Urine WBC Clumps Urine Bacteria Hyaline Casts Urine Mucus Micro UA Comment Ur Microscopic Review Urine Culture Comments Hepatitis A IgM Ab Hep Bs Antigen Hep B Core IgM Ab Hep C IgG Ab - Imaging Impressions Abdomen/Pelvis CT 07/17/18 15:13 CONCLUSION: 1. There is a 5 mm nonobstructing stone in the right renal pelvis. 2. Status post cholecystectomy. 3. Moderate to large bolus of stool in the rectum. No mechanical obstruction. 4. No acute pelvic or abdominal pathology. Liver Ultrasound 07/18/18 00:00 CONCLUSION: 1. Liver is echogenic which can be seen with hepatocellular dysfunction. 2. Status post cholecystectomy. 3. Right kidney is borderline echogenic which can be seen with medical renal disease. <Víctor Beaver - Last Filed: 07/18/18 15:31> Assessment and Plan - Plan 73-year-old female who was brought in to the hospital from the [facility] on 07/17/2018 with complaints of abdominal pain. Patient's sister is at her bedside and is her main historian due to patient's history of CVA and aphasia. Patient is crying out and pointing to her left lower abdomen and lower abdominal area. Currently there appears to be no nausea no vomiting no dyspepsia or dysphasia no obvious hematemesis. Timing and event are unknown to patient's lower abdominal pain. CT scan performed on admission showed moderate to large bolus of stool in the rectal area, and no biliary tree dilatation. A previous CT was faxed over from [facility] performed on 06/10/2018. Findings included circumferential wall thickening of the rectum, and anus is not seen without evidence of circumferential fatty rectal inflammatory changes, tumor or inflammation is a strong consideration. Liver ultrasound was also performed on 07/18/2018 which showed echogenic changes which could be related to hepatocellular dysfunction. Status post cholecystectomy. Current labs show hemoglobin 15.5, WBC count 14.4. On admission patient had normal LFTs but on patient had 0.5 bilirubin, AST 213, ALT 135, and now elevated alkaline phosphatase at 263, lipase 40. New medications include Zofran, morphine, and antibiotics ceftriaxone. According to sister brother had some type of colon surgery in his 80s but no family history of colon cancer. Unknown timing or events of EGD or colonoscopy in the past but sister states no GI procedures that she knows of in the past 5 years since [facility] been in the [facility]. Gastroenterology was consulted to assist with elevated LFTs, symptom management and plan of care. Transaminitis elevated LFTs, normal on admission with elevation noted 24 hours later. Unspecified reasons unless related to medications./Some type of hepatocellular dysfunction. New medications given in the past 24 hours are Zofran, morphine, ceftriaxone. Abdominal pain mid and left lower quadrant. Previous CT scan done outpatient on 06/10/2018 showed circumferential thickening of the rectum and anus without evidence of significant fatty rectal inflammatory changes, tumor or inflammation is a strong consideration. Consider further scope and biopsy. Leukocytosis noted. Patient could have possible higher impaction, constipation. CT scan on 06/10/2018 ,rectal inflammation or pain could be related to proctitis , Anusitis, /chronic constipation. Current CT scan did show moderate to large stool bolus on admission. Rectal exam performed, no hard stool palpated, no obvious obstruction, no external hemorrhoids seen. Immediate stool was brown and soft without any obvious blood, Plan Diet Monitor labs with special attention to transaminitis Anusol HC Suppository 3 times a day Soapsuds enemas x2 today Mag citrate x1 bottle Supportive care Consider sigmoidoscopy/colonoscopy, timing TBA liver workup labs initiated, CA 19-9, alpha-fetoprotein, hepatic panel, AMS A, stool alpha-1 antitrypsin, PIERRE Further recommendations to follow Patient was seen per rashelelf and Dr. Beaver, note was written on his behalf <Steph Corral - Last Filed: 07/18/18 12:47> - Plan Seen and examined with [employer], sister present at bedside. Tolerating diet. Pain better with enemas. Discussed egd/colonoscopy with sister but for now she wishes to hold off. Monitor labs. Will follow. The exam, history, and the medical decision-making described in the above note were completed with the assistance of the mid-level provider. I reviewed and agree with the findings presented. I attest that I had a [id number] encounter with the patient on the same day, and personally performed and documented my assessment and findings in the medical record. <Víctor Beaver - Last Filed: 07/18/18 15:31>
[2018-07-18] MEDS ORDERED: Magnesium Citrate Liq 300 ML Bottle PO ONE (13:00)
[2018-07-18 14:47] LABS: Albumin 3.5 g/dL (3.4-5.0)
[2018-07-18 14:48] LABS: Hepatitis A IgM Antibody Nonreactive (Nonreactive); Hepatitits B Surface Antigen Nonreactive (Nonreactive)
[2018-07-18 14:49] LABS: Alpha Fetoprotein Tumor Marker 1.7 ng/mL (0.5-8.0); Total Protein 6.9 g/dL (6.4-8.2)
[2018-07-18] MEDS: diphenhydrAMINE 2%/Zinc Cream 30 GM Tube TOPICAL PRN (17:11)
--- NOTE | 2018-07-18 17:37 | P.PNWCN ---
Wound Care Nurse Consult Description: Consult for Pressure Ulcer to sacrum per Dr Pierce Communicated with: RN Recommendation: Calazime skin protectant paste BID and PRN Additional information: Patient seen in [facility] for right buttock Stage 2 partial thickness skin loss. Wound/Pressure Injury - Patient Status Premedicated for Pain Prior to Dressing Change: No - Wound Right Buttocks Wound Assessment: Admission Wound Type: Pressure Injury Requested from Provider a Wound Care Consult: Yes Length (cm): 1.5 (cm) Width (cm): 1 (cm) Depth (cm): 0.1 (cm) Wound Bed Appearance: Red Wound Bed Appearance: Circular wound with defined sharp wound margins, no odor, and no active drainage noted. Surrounding Tissue Appearance: Erythema Drainage Amount: None Drainage Odor: No Odor Dressing Status: Open to Air Topical: Calazime skin protectant recommended for shallow open wound
[2018-07-19] MEDS ORDERED: HYDROmorphone PF Inj 2 MG/ML Vial IV.PUSH ONE (01:08)
[2018-07-19 07:31] LABS: Baso % (Auto) 0.2 % (0.0-2.0); Eos # (Auto) 1.1 th/mm3 (0.0-0.4); Eos % (Auto) 8.2 % (0.0-4.0); Hematocrit 36.1 % (35.0-46.0); Hemoglobin 11.5 gm/dL (11.6-15.3); Lymph # (Auto) 1.8 th/mm3 (1.0-4.8); Lymph % (Auto) 13.1 % (9.0-44.0); Mean Corpuscular Hemoglobin 29.4 pg (27.0-34.0); Mean Corpuscular Volume 91.9 fL (80.0-100.0); Mean Platelet Volume 9.3 fL (7.0-11.0); Mono # (Auto) 0.6 th/mm3 (0.0-0.9); Mono % (Auto) 4.8 % (0.0-8.0); Neut % (Auto) 73.7 % (16.0-70.0); Platelet Count 224 th/mm3 (150-450); Red Blood Count 3.93 mil/mm3 (4.00-5.30); Red Cell Distribution Width 13.8 % (11.6-17.2); White Blood Count 13.6 th/mm3 (4.0-11.0)
[2018-07-19] MEDS: Sod Chloride 0.9% Inj 1,000 ML IV.CONT SCH ×2 (07:44→17:49)
[2018-07-19] MEDS: Morphine Sulfate Inj 2 MG/ML Vial IV.PUSH PRN ×2 (08:10→11:43)
[2018-07-19 08:11] LABS: Alanine Aminotransferase 55 U/L (10-53); Albumin 2.9 g/dL (3.4-5.0); Alkaline Phosphatase 157 U/L (45-117); Anion Gap 10 meq/L (5-15); Aspartate Aminotransferase 43 U/L (15-37); Blood Urea Nitrogen 20 mg/dL (7-18); Calcium 7.8 mg/dL (8.5-10.1); Carbon Dioxide 21.9 meq/L (21.0-32.0); Chloride 109 meq/L (98-107); Glomerular Filtration Rate 47 mL/min (>89); Glucose,Random 87 mg/dL (74-106); Potassium 4.7 meq/L (3.5-5.1); Sodium 141 meq/L (136-145); Total Protein 6.1 g/dL (6.4-8.2)
[2018-07-19] MEDS: Insulin NovoLOG Aspart Correctional Sugar Inj SQ SCH ×4 (09:06→21:20)
--- NOTE | 2018-07-19 09:23 | P.PNIM ---
Subjective Interval history: f/u; abdominal pain/elevated LFT's poor historian. in no acute distress. seems to be having some generalized abdominal pain. no fever. Physical Exam Vital signs: Vital Signs 07/18/18 12:20 07/18/18 16:00 07/18/18 20:00 Temperature 97.8 F 98.3 F 98 F Pulse Rate 78 77 78 Respiratory Rate 18 16 17 Blood Pressure 119/68 141/61 H 145/66 H Pulse Oximetry 97 96 95 07/19/18 00:00 07/19/18 08:00 Temperature Pulse Rate 86 76 Respiratory Rate 18 Blood Pressure 125/56 L 123/55 L Pulse Oximetry 100 99 Intake & Output 07/18/18 07/19/18 07/19/18 18:59 06:59 18:59 Intake Total 1999 1100 / 1100 Balance 1999 1100 / 1100 Weight 82.055 kg Intake: IV 1999 1100 / 1100 NS Inj 1,000 ML @ 100 mls/hr IV 1999 / 1999 1000 / 1000 .CONT .Q10H [facility] Rx#:[id number] Rocephin Inj 1,000 MG In NS Inj 100 / 100 100 ML @ 200 mls/hr IV.SIG Q24H [facility] Rx#:[id number] Other: # Incontinent Voids 2 # Urine Diapers 3 - Constitutional no acute distress - Routine Respiratory Exam Present: CTA bilaterally - Routine Cardiovascular Exam Present: RRR - Routine Abdominal Exam Present: soft - Routine Extremities Exam Comments: no pedal edema. - Routine Neurological Exam Present: alert (with aphasia.) Results - Labs CBC & Chem 7: 07/19/18 06:10 07/19/18 06:10 Laboratory Results - last 24 hr 07/18/18 07/18/18 07/18/18 12:40 12:56 14:04 WBC RBC Hgb Hct MCV MCH MCHC RDW Plt Count MPV Neut % (Auto) Lymph % (Auto) [place] % (Auto) Eos % (Auto) Baso % (Auto) Neut # (Auto) Lymph # (Auto) [place] # (Auto) Eos # (Auto) Baso # (Auto) WBC Differential Differential Comment Sodium Potassium Chloride Carbon Dioxide Anion Gap BUN Creatinine Estimated GFR POC Glucose 101 Random Glucose Calcium Total Bilirubin 0.6 Direct Bilirubin 0.2 Indirect Bilirubin 0.4 AST 92 H ALT 95 H Alkaline Phosphatase 225 H Total Protein 6.9 D Albumin 3.5 Tumor Marker AFP 1.7 CA 19-9 Antigen Hepatitis A IgM Ab Nonreactive Hep Bs Antigen Nonreactive Hep B Core IgM Ab Nonreactive Hep C IgG Ab Nonreactive 07/18/18 07/18/18 07/18/18 14:04 17:48 21:23 WBC RBC Hgb Hct MCV MCH MCHC RDW Plt Count MPV Neut % (Auto) Lymph % (Auto) [place] % (Auto) Eos % (Auto) Baso % (Auto) Neut # (Auto) Lymph # (Auto) [place] # (Auto) Eos # (Auto) Baso # (Auto) WBC Differential Differential Comment Sodium Potassium Chloride Carbon Dioxide Anion Gap BUN Creatinine Estimated GFR POC Glucose 152 H 182 H Random Glucose Calcium Total Bilirubin Direct Bilirubin Indirect Bilirubin AST ALT Alkaline Phosphatase Total Protein Albumin Tumor Marker AFP CA 19-9 Antigen 7.3 Hepatitis A IgM Ab Hep Bs Antigen Hep B Core IgM Ab Hep C IgG Ab 07/19/18 07/19/18 07/19/18 06:10 06:10 08:19 WBC 13.6 H RBC 3.93 L Hgb 11.5 L D Hct 36.1 MCV 91.9 MCH 29.4 MCHC 32.0 RDW 13.8 Plt Count 224 MPV 9.3 Neut % (Auto) 73.7 H Lymph % (Auto) 13.1 [place] % (Auto) 4.8 Eos % (Auto) 8.2 H Baso % (Auto) 0.2 Neut # (Auto) 10.0 H Lymph # (Auto) 1.8 [place] # (Auto) 0.6 Eos # (Auto) 1.1 H Baso # (Auto) 0.0 WBC Differential . Differential Comment Auto diff final Sodium 141 Potassium 4.7 Chloride 109 H Carbon Dioxide 21.9 Anion Gap 10 BUN 20 H Creatinine 1.14 H Estimated GFR 47 L POC Glucose 103 Random Glucose 87 Calcium 7.8 L D Total Bilirubin 0.3 Direct Bilirubin Indirect Bilirubin AST 43 H ALT 55 H Alkaline Phosphatase 157 H Total Protein 6.1 L D Albumin 2.9 L D Tumor Marker AFP CA 19-9 Antigen Hepatitis A IgM Ab Hep Bs Antigen Hep B Core IgM Ab Hep C IgG Ab Microbiology 07/17/18 15:26 Catheterized Urine Urine Culture - Preliminary No growth in 24 hours - Imaging Impressions Liver Ultrasound 07/18/18 00:00 CONCLUSION: 1. Liver is echogenic which can be seen with hepatocellular dysfunction. 2. Status post cholecystectomy. 3. Right kidney is borderline echogenic which can be seen with medical renal disease. Assessment and Plan - Assessment (1) Encephalopathy Code(s): G93.40 - Encephalopathy, unspecified Status: Acute (2) UTI (urinary tract infection) Code(s): N39.0 - Urinary tract infection, site not specified Status: Acute (3) Intractable pain Code(s): R52 - Pain, unspecified Status: Acute (4) Decubitus ulcer Code(s): L89.90 - Pressure ulcer of unspecified site, unspecified stage Status : Acute (5) DM (diabetes mellitus) Code(s): E11.9 - Type 2 diabetes mellitus without complications Status: Acute - Plan 1. Encephalopathy: Likely secondary to acute UTI, Neuro Checks. 2. UTI: U/a w/ UTI, s/p Rocephin in ER, will continue w/ IV Abx, follow up cultures, IVF for hydration, monitor I/O. 3. Intractable Pain/ with elevated LFT's: CT Abd/Pelvis w/ nonobstructing 5mm stone right renal pelvis, moderate to large stool in rectum w/ no mechanical obstruction. live US with possible hepatocellular dysfunction.hepatitis panel negative. repeat LFT's in am.GI following. the sister wants to hold off on endoscopy at this time. 4. acute kidney injury; continue with IV fluid- avoid nephrotoxins- will monitor the renal function. 5. Decubitus Ulcer: Sacral, present on admission. consulted Wound Management for further eval/intervention. 6. DM: Sliding scale w/ Accu-Cheks. 7. DVT Prophylaxis: SCD/Teds Discharge Planning: possible dc to SNF tomorrow if stable and cleared by GI.
[2018-07-19] MEDS: Senna/Docusate Sodium 8.6/50 MG Tablet PO SCH ×2 (10:51→21:20)
[2018-07-19] MEDS ORDERED: HYDROmorphone PF Inj 0.5 MG/0.5 ML Syringe IV.PUSH PRN (12:41)
[2018-07-19 13:29] LABS: Smooth Muscle Total Auto Abs Negative (Negative)
[2018-07-19] MEDS ORDERED: Sodium Chloride 0.9% 2 ML Flush PRN IV.FLUSH (13:33)
[2018-07-19] MEDS: HYDROmorphone PF Inj 2 MG/ML Vial IV.PUSH PRN ×3 (14:01→21:21)
--- NOTE | 2018-07-19 17:57 | P.PNGI ---
Subjective Interval history: No bleeding. Unclear if still with pain Physical Exam Vital signs: Vital Signs 07/18/18 20:00 07/19/18 00:00 07/19/18 08:00 Temperature 98 F Pulse Rate 78 86 76 Respiratory Rate 17 18 Blood Pressure 145/66 H 125/56 L 123/55 L Pulse Oximetry 95 100 99 07/19/18 16:00 Temperature 97.7 F Pulse Rate 71 Respiratory Rate 18 Blood Pressure 136/61 Pulse Oximetry 99 Intake & Output 07/18/18 07/19/18 07/19/18 18:59 06:59 18:59 Intake Total 1999 / 1999 1100 / 1100 1000 / 1000 Balance 1999 / 1999 1100 / 1100 1000 / 1000 Weight 82.055 kg Intake: IV 1999 / 1999 1100 / 1100 1000 / 1000 NS Inj 1,000 ML @ 100 mls/hr IV 1999 / 1999 1000 / 1000 1000 / 1000 .CONT .Q10H [facility] Rx#:[id number] Rocephin Inj 1,000 MG In NS Inj 100 / 100 100 ML @ 200 mls/hr IV.SIG Q24H [facility] Rx#:[id number] Other: # Incontinent Voids 2 # Urine Diapers 3 Date of Last Bowel Movement 07/19/18 - Constitutional no acute distress - Routine HEENT Exam Head: Present: normocephalic - Routine Respiratory Exam Present: CTA bilaterally - Routine Cardiovascular Exam Present: RRR - Routine Abdominal Exam Present: soft, tenderness Results - Labs CBC & Chem 7: 07/19/18 06:10 07/19/18 06:10 Laboratory Results - last 24 hr 07/18/18 07/18/18 07/19/18 14:04 21:23 06:10 WBC RBC Hgb Hct MCV MCH MCHC RDW Plt Count MPV Neut % (Auto) Lymph % (Auto) [place] % (Auto) Eos % (Auto) Baso % (Auto) Neut # (Auto) Lymph # (Auto) [place] # (Auto) Eos # (Auto) Baso # (Auto) WBC Differential Differential Comment Sodium 141 Potassium 4.7 Chloride 109 H Carbon Dioxide 21.9 Anion Gap 10 BUN 20 H Creatinine 1.14 H Estimated GFR 47 L POC Glucose 182 H Random Glucose 87 Calcium 7.8 L D Total Bilirubin 0.3 AST 43 H ALT 55 H Alkaline Phosphatase 157 H Total Protein 6.1 L D Albumin 2.9 L D Anti-Smooth Muscle Ab Negative 07/19/18 07/19/18 07/19/18 06:10 08:19 12:17 WBC 13.6 H RBC 3.93 L Hgb 11.5 L D Hct 36.1 MCV 91.9 MCH 29.4 MCHC 32.0 RDW 13.8 Plt Count 224 MPV 9.3 Neut % (Auto) 73.7 H Lymph % (Auto) 13.1 [place] % (Auto) 4.8 Eos % (Auto) 8.2 H Baso % (Auto) 0.2 Neut # (Auto) 10.0 H Lymph # (Auto) 1.8 [place] # (Auto) 0.6 Eos # (Auto) 1.1 H Baso # (Auto) 0.0 WBC Differential . Differential Comment Auto diff final Sodium Potassium Chloride Carbon Dioxide Anion Gap BUN Creatinine Estimated GFR POC Glucose 103 182 H Random Glucose Calcium Total Bilirubin AST ALT Alkaline Phosphatase Total Protein Albumin Anti-Smooth Muscle Ab 07/19/18 17:08 WBC RBC Hgb Hct MCV MCH MCHC RDW Plt Count MPV Neut % (Auto) Lymph % (Auto) [place] % (Auto) Eos % (Auto) Baso % (Auto) Neut # (Auto) Lymph # (Auto) [place] # (Auto) Eos # (Auto) Baso # (Auto) WBC Differential Differential Comment Sodium Potassium Chloride Carbon Dioxide Anion Gap BUN Creatinine Estimated GFR POC Glucose 180 H Random Glucose Calcium Total Bilirubin AST ALT Alkaline Phosphatase Total Protein Albumin Anti-Smooth Muscle Ab Microbiology 07/17/18 15:26 Catheterized Urine Urine Culture - Final Lactobacillus species Assessment and Plan - Plan Seen and examined with HEALTH INSURANCE ASSESSOR, LFTs improving. Unclear if still with pain. Family at the bedside. No GI interventions desired. Can dc home. GI fu upon dc. Discussed with Dr Montano. Avis
[2018-07-19] MEDS: Sodium Chloride 0.9% 2 ML Flush BID IV.FLUSH SCH (21:20)
[2018-07-20] MEDS: HYDROmorphone PF Inj 2 MG/ML Vial IV.PUSH PRN ×3 (02:52→10:00)
[2018-07-20] MEDS: Sod Chloride 0.9% Inj 1,000 ML IV.CONT SCH ×2 (03:57→08:26)
--- NOTE | 2018-07-20 07:53 | P.PNIM ---
Subjective Interval history: f/u; abdominal pain in no acute distress. looks more comfortable today. abdominal pain has much improved. no fever. Physical Exam Vital signs: Vital Signs 07/19/18 08:00 07/19/18 16:00 07/19/18 19:51 Temperature 97.7 F 99.1 F Pulse Rate 76 71 62 Respiratory Rate 18 18 17 Blood Pressure 123/55 L 136/61 143/69 H Pulse Oximetry 99 99 98 07/19/18 20:51 07/19/18 23:43 Temperature 97.8 F Pulse Rate 71 Respiratory Rate 17 17 Blood Pressure 137/71 Pulse Oximetry 96 Intake & Output 07/19/18 07/20/18 07/20/18 18:59 06:59 18:59 Intake Total 1000 / 1000 1100 / 1100 180 / 180 Balance 1000 / 1000 1100 / 1100 180 / 180 Intake: IV 1000 / 1000 1100 / 1100 NS Inj 1,000 ML @ 100 mls/hr IV 1000 / 1000 1000 / 1000 .CONT .Q10H [facility] Rx#:[id number] Rocephin Inj 1,000 MG In NS Inj 100 / 100 100 ML @ 200 mls/hr IV.SIG Q24H [facility] Rx#:[id number] Oral 180 / 180 Other: Date of Last Bowel Movement 07/19/18 07/19/18 - Constitutional no acute distress - Routine Respiratory Exam Present: CTA bilaterally - Routine Cardiovascular Exam Present: RRR - Routine Abdominal Exam Present: soft - Routine Extremities Exam Comments: no pedal edema. - Routine Neurological Exam Present: alert, oriented X3 Results - Labs CBC & Chem 7: 07/20/18 07:45 07/20/18 07:45 Laboratory Results - last 24 hr 07/18/18 07/19/18 07/19/18 14:04 06:10 08:19 Sodium 141 Potassium 4.7 Chloride 109 H Carbon Dioxide 21.9 Anion Gap 10 BUN 20 H Creatinine 1.14 H Estimated GFR 47 L POC Glucose 103 Random Glucose 87 Calcium 7.8 L D Total Bilirubin 0.3 AST 43 H ALT 55 H Alkaline Phosphatase 157 H Total Protein 6.1 L D Albumin 2.9 L D Anti-Smooth Muscle Ab Negative 07/19/18 07/19/18 07/19/18 12:17 17:08 21:19 Sodium Potassium Chloride Carbon Dioxide Anion Gap BUN Creatinine Estimated GFR POC Glucose 182 H 180 H 126 H Random Glucose Calcium Total Bilirubin AST ALT Alkaline Phosphatase Total Protein Albumin Anti-Smooth Muscle Ab Microbiology 07/17/18 15:26 Catheterized Urine Urine Culture - Final Lactobacillus species - Procedures none. Assessment and Plan - Assessment (1) Encephalopathy Code(s): G93.40 - Encephalopathy, unspecified Status: Acute (2) UTI (urinary tract infection) Code(s): N39.0 - Urinary tract infection, site not specified Status: Acute (3) Intractable pain Code(s): R52 - Pain, unspecified Status: Acute (4) Decubitus ulcer Code(s): L89.90 - Pressure ulcer of unspecified site, unspecified stage Status : Acute (5) DM (diabetes mellitus) Code(s): E11.9 - Type 2 diabetes mellitus without complications Status: Acute - Plan 1. Encephalopathy: Likely secondary to acute UTI-now improved. 2. UTI: U/a w/ UTI, s/p Rocephin Urine cultures with lactobacillus. 3. Intractable Pain/ with elevated LFT's: CT Abd/Pelvis w/ nonobstructing 5mm stone right renal pelvis, moderate to large stool in rectum w/ no mechanical obstruction. live US with possible hepatocellular dysfunction.hepatitis panel negative. pain has much improved- no further inpatient GI w/u- cleared by GI for discharge. the sister wants to hold off on endoscopy at this time. 4. acute kidney injury; continue with IV fluid- avoid nephrotoxins- will monitor the renal function. 5. Decubitus Ulcer: Sacral, present on admission. consulted Wound Management for further eval/intervention. 6. DM: Sliding scale w/ Accu-Cheks. 7. DVT Prophylaxis: SCD/Teds Discharge Planning: dc to SNF today after the blood work is resulted and stable. see med list. f/u; pcp and GI. d/w the patient and previously with . Erlinda was consulted prior to discharge.
[2018-07-20 08:16] LABS: Anion Gap 9 meq/L (5-15); Aspartate Aminotransferase 25 U/L (15-37); Blood Urea Nitrogen 13 mg/dL (7-18); Calcium 8.5 mg/dL (8.5-10.1); Carbon Dioxide 22.8 meq/L (21.0-32.0); Chloride 110 meq/L (98-107); Glomerular Filtration Rate 60 mL/min (>89); Glucose,Random 101 mg/dL (74-106); Potassium 4.8 meq/L (3.5-5.1)
[2018-07-20 08:17] LABS: Alanine Aminotransferase 37 U/L (10-53)
[2018-07-20 08:19] LABS: Alkaline Phosphatase 128 U/L (45-117); Total Protein 6.7 g/dL (6.4-8.2)
[2018-07-20 08:21] VITALS: RESP 16
[2018-07-20 08:24] LABS: Sodium 142 meq/L (136-145)
[2018-07-20] MEDS: Insulin NovoLOG Aspart Correctional Sugar Inj SQ SCH ×2 (08:25→11:35)
[2018-07-20] MEDS: Sodium Chloride 0.9% 2 ML Flush BID IV.FLUSH SCH (08:26)
[2018-07-20] MEDS: Senna/Docusate Sodium 8.6/50 MG Tablet PO SCH (08:26)
[2018-07-20 09:16] LABS: Baso % (Auto) 0.3 % (0.0-2.0); Eos # (Auto) 1.2 th/mm3 (0.0-0.4); Eos % (Auto) 8.4 % (0.0-4.0); Hematocrit 37.6 % (35.0-46.0); Hemoglobin 12.3 gm/dL (11.6-15.3); Lymph # (Auto) 1.6 th/mm3 (1.0-4.8); Lymph % (Auto) 11.1 % (9.0-44.0); Mean Corpuscular HGB Conc 32.8 % (32.0-36.0); Mean Corpuscular Hemoglobin 29.3 pg (27.0-34.0); Mean Corpuscular Volume 89.4 fL (80.0-100.0); Mean Platelet Volume 9.7 fL (7.0-11.0); Mono # (Auto) 0.8 th/mm3 (0.0-0.9); Mono % (Auto) 5.8 % (0.0-8.0); Neut # (Auto) 10.8 th/mm3 (1.8-7.7); Neut % (Auto) 74.4 % (16.0-70.0); Platelet Count 225 th/mm3 (150-450); Red Cell Distribution Width 13.4 % (11.6-17.2); White Blood Count 14.5 th/mm3 (4.0-11.0)
--- NOTE | 2018-07-20 11:19 | P.DS ---
Date of admission: 07/17/18 19:43 Primary care physician: UNKNOWN Brief History from admission: This is a 73-year-old female with a PMH of Anxiety, CVA w/ Residual Aphasia, HTN , Hyperlipidemia and DM who was brought to the ER by transport for AMS and c/o abdominal pain. Pt poor historian due to h/o CVA, mostly non-verbal at baseline , but able to point to area of pain on abdomen. No reported fever/chills, nausea, vomiting or diarrhea. On arrival, BP 144/92, HR 68, O2 sat 95% on RA, Afebrile. WBC 14.6. Creatinine 1.08. Lactic Acid normal. UA positive for UTI. CT Abdomen/Pelvis 5 mm nonobstructing stone right renal pelvis, large bolus of stool in the rectum no obstruction. S/p IVF, Rocephin and multiple doses of Morphine w/ minimal relief of pain complaints. DS: Diagnosis - Discharge Diagnosis (1) Encephalopathy Status: Acute (2) UTI (urinary tract infection) Status: Acute (3) Intractable pain Status: Acute (4) Decubitus ulcer Status: Acute (5) DM (diabetes mellitus) Status: Acute DS: Medications - Discharge Medications Prescriptions: ciprofloxacin HCl [Cipro] 250 mg PO BID 3 Days #6 tab tramadol 50 mg PO Q6H PRN #8 tab PRN Reason: pain4-10 DS: Summary Hospital Course: patient was admitted with abdominal pain. she was found to have elevated LFT's. her hepatitis panel negative and imaging studies as noted below. she was seen by GI. her LFT's improved. no GI interventions per the family request.statin can be resumed as outpatient if LFT's remain stable.she will continue with oral antibiotic for UTI. - Time Spent with Patient Total time spent providing and/or coordinating discharge services: Less than 30 minutes - Quality: VTE Deep Vein Thrombosis/Pulmonary Embolism Present on Admission: No Exam Vital signs: Vital Signs 07/19/18 16:00 07/19/18 19:51 07/19/18 20:51 Temperature 97.7 F 99.1 F Pulse Rate 71 62 Respiratory Rate 18 17 17 Blood Pressure 136/61 143/69 H Pulse Oximetry 99 98 07/19/18 23:43 07/20/18 08:00 Temperature 97.8 F 98.6 F Pulse Rate 71 86 Respiratory Rate 17 16 Blood Pressure 137/71 159/73 H Pulse Oximetry 96 90 L Intake & Output 07/19/18 07/20/18 07/20/18 18:59 06:59 18:59 Intake Total 1000 / 1000 1100 / 1100 1180 / 1180 Balance 1000 / 1000 1100 / 1100 1180 / 1180 Intake: IV 1000 / 1000 1100 / 1100 1000 / 1000 NS Inj 1,000 ML @ 100 mls/hr IV 1000 / 1000 1000 / 1000 1000 / 1000 .CONT .Q10H [facility] Rx#:[id number] Rocephin Inj 1,000 MG In NS Inj 100 / 100 100 ML @ 200 mls/hr IV.SIG Q24H [facility] Rx#:[id number] Oral 180 / 180 Other: Date of Last Bowel Movement 07/19/18 07/19/18 07/19/18 - Constitutional no acute distress - Routine Respiratory Exam Present: CTA bilaterally - Routine Cardiovascular Exam Present: RRR - Routine Abdominal Exam Present: soft - Routine Extremities Exam Comments: no pedal edema. - Routine Neurological Exam Present: alert Results Procedures completed during hospitalization: none. Labs on day of discharge: Labs from last 24 hours 07/20/18 07/20/18 07/20/18 07:45 07:45 07:32 WBC 14.5 H RBC 4.20 Hgb 12.3 Hct 37.6 MCV 89.4 MCH 29.3 MCHC 32.8 RDW 13.4 Plt Count 225 MPV 9.7 Neut % (Auto) 74.4 H Lymph % (Auto) 11.1 [place] % (Auto) 5.8 Eos % (Auto) 8.4 H Baso % (Auto) 0.3 Neut # (Auto) 10.8 H Lymph # (Auto) 1.6 [place] # (Auto) 0.8 Eos # (Auto) 1.2 H Baso # (Auto) 0.0 WBC Differential . Differential Comment Auto diff final Hematology Comments Sodium 142 Potassium 4.8 Chloride 110 H Carbon Dioxide 22.8 Anion Gap 9 BUN 13 Creatinine 0.92 Estimated GFR 60 L POC Glucose 117 H Random Glucose 101 Calcium 8.5 Total Bilirubin 0.3 AST 25 ALT 37 Alkaline Phosphatase 128 H Total Protein 6.7 D Albumin 3.0 L Stool i-3-Rzrquhzmmvm Anti-Smooth Muscle Ab 07/19/18 07/19/18 07/19/18 21:19 17:08 12:17 WBC RBC Hgb Hct MCV MCH MCHC RDW Plt Count MPV Neut % (Auto) Lymph % (Auto) [place] % (Auto) Eos % (Auto) Baso % (Auto) Neut # (Auto) Lymph # (Auto) [place] # (Auto) Eos # (Auto) Baso # (Auto) WBC Differential Differential Comment Hematology Comments Sodium Potassium Chloride Carbon Dioxide Anion Gap BUN Creatinine Estimated GFR POC Glucose 126 H 180 H 182 H Random Glucose Calcium Total Bilirubin AST ALT Alkaline Phosphatase Total Protein Albumin Stool b-9-[id number] Anti-Smooth Muscle Ab 07/19/18 07/18/18 11:21 14:04 WBC RBC Hgb Hct MCV MCH MCHC RDW Plt Count MPV Neut % (Auto) Lymph % (Auto) [place] % (Auto) Eos % (Auto) Baso % (Auto) Neut # (Auto) Lymph # (Auto) [place] # (Auto) Eos # (Auto) Baso # (Auto) WBC Differential Differential Comment Hematology Comments Sodium Potassium Chloride Carbon Dioxide Anion Gap BUN Creatinine Estimated GFR POC Glucose Random Glucose Calcium Total Bilirubin AST ALT Alkaline Phosphatase Total Protein Albumin Stool f-0-Ecuzzoqexfo Pending Anti-Smooth Muscle Ab Negative - Impressions ITS Impressions Abdomen/Pelvis CT 07/17/18 15:13 CONCLUSION: 1. There is a 5 mm nonobstructing stone in the right renal pelvis. 2. Status post cholecystectomy. 3. Moderate to large bolus of stool in the rectum. No mechanical obstruction. 4. No acute pelvic or abdominal pathology. Liver Ultrasound 07/18/18 00:00 CONCLUSION: 1. Liver is echogenic which can be seen with hepatocellular dysfunction. 2. Status post cholecystectomy. 3. Right kidney is borderline echogenic which can be seen with medical renal disease. Discharge Plan - Discharge Disposition Patient Disposition: 03 Discharge to SNF - Discharge Condition Condition: Fair - Discharge Order Discharge Orders: Discharge Order (Routine); Ordered 07/20/18 Ordered By: Mishel Kaplan - Physicians Team Primary Care Provider: UNKNOWN, Attending Provider: Mishel Kaplan Other Providers: Víctor Beaver MD ; [facility],Agency
[2018-07-20 12:07] VITALS: BP 145/75; PULSE 81; TEMP 98.8; O2SAT 100
[2018-07-20] MEDS: diphenhydrAMINE 2%/Zinc Cream 30 GM Tube TOPICAL PRN (12:52)
[2018-07-21 23:51] LABS: DS DNA Ab (Crithidia) NEGATIVE (NEGATIVE)
== END 2018-07-20 13:07 ==
LOC: NEDA 14:57 → NEPE 14:57 → NEPFCDU 20:23
PROVIDERS: ADMIT Internal Medicine; ATTEND Internal Medicine